=== PATIENT | male | born 1950 | race American Indian/Alaskan Native ===

== ENCOUNTER 2017-01-03 07:31 | Day surgery (SDC) | payer MEDICARE ==
[2016-12-21 09:57] VITALS: BMI 25.8
[2017-01-03] MEDS ORDERED: Iohexol 240 (50 ml) ONE (07:52)
[2017-01-03] MEDS ORDERED: cefTRIAXone IV 1 gm in Dextros 50 ML IVPB ONE (07:52)
[2017-01-03] MEDS ORDERED: Lidocaine 2% Jelly (Uro-Jet) ONE (07:52)
[2017-01-03] MEDS ORDERED: Iohexol 240 200 ML IJ ONE (09:38)
[2017-01-03] MEDS ORDERED: Lactated Ringer's 1,000 ML IV ONE (09:39)
[2017-01-03] MEDS ORDERED: Propofol 10 mg/ml Inj (20 ML) ONE (09:40)
--- NOTE | 2017-01-03 10:10 | PCM.SURG1 ---
Surgeon's Initial Post Op Note - Surgeon's Notes Surgeon: Reena COHN Baggage Porter: NONE Type of Anesthesia: General Mask Pre-Operative Diagnosis: VOIDING DYSFUNCTION. BPH Operative Findings: SAME Post-Operative Diagnosis: SAME Operation Performed: CMG, CGM. CYSTOSCOPY Specimen/Specimens Removed: URINE Estimated Blood Loss: EBL {In ML}: 0 Blood Products Given: N/A Drains Used: No Drains Post-Op Condition: Good Date of Surgery/Procedure: 01/03/17 Time of Surgery/Procedure: 10:10
[2017-01-03] MEDS ORDERED: HYDROmorphone 0.5 mg/0.5 ml ISec IVP PRN (10:39)
[2017-01-03 12:06] VITALS: BP 143/95; PULSE 59; RESP 20; TEMP 98; O2SAT 100
--- NOTE | 2017-01-04 11:48 | OP ---
PROCEDURE DATE: 01/03/2017 PREOPERATIVE DIAGNOSES: Lower urinary tract voiding symptoms, prostatic enlargement. POSTOPERATIVE DIAGNOSES: Lower urinary tract voiding symptoms, prostatic enlargement. PROCEDURE: Cystometrogram. Cystogram. Cystoscopy. DESCRIPTION OF PROCEDURE: The patient received perioperative antibiotics. The patient was placed in the supine position. Hicks catheter was inserted per urethra. The residual within the bladder was less than 100 mL. Urine was sent for bacteriologic examination and cytologic examination. The cystometrogram was performed. Carbon dioxide gas was instilled into the bladder at filling rate of 120 mL minute. The patient had a first urge to void at a volume of 110 mL. He had a stronger desire to void at 560 mL. The patient had felt uncomfortable and full at a volume of 200 mL. There was no detrusor instability. There was no detrusor contraction. The only pressure was w hen patient was asked to cough. The patient then had a cystogram performed. Iodinated contrast dye was instilled per urethra. Radio graphs were obtained in PA and oblique views. Cystogram demonstrated a normal bladder contour. There was no intrinsic or extrinsic filling defect within the bladder. There was no vesicoureteral reflux. The bladder contour was normal. There was mild elevation of the bladder base consistent with prostatic hypertrophy. The bladder was then drained. The patient was placed in lithotomy position. Genitalia prepped and d raped sterilely. Anesthesia was provided by the anesthesiologist. A 22-Malay cystoscope sheath was introduced under direct vision. Urethra, prostate and bladder were inspected with 30-degree and 70-degree lenses. FINDINGS: There was no stricture of the anterior urethra. There was evidence of predominant lateral lobe hypertrophy. The prostatic urethra was 5 cm in length. There was small middle lobe hypertroph y at the bladder neck. There was mild bladder trabeculation. There was no bladder tumor. There was no bladder stone. The ureteral orifices were normal in position and shape. There was no bladder diverticula. There were n o focal mucosal lesions within the bladder. The bladder was reinspected with 70-degree lens and confirmed the above findings. The cystoscope and sheath were removed. Rectal examination was performed. Prostate was supple and smooth, approximately 15 grams in size, wi thout fixation, induration, or nodularity. There was no abnormal pelvic mass fixation or induration. The patient tolerated the procedure without complication. Cromwell Sonal Saleh MD cc: [id number] TT: 01/04/2017 11:48:13 rn
--- NOTE | 2017-01-04 17:13 | RAD ---
PROCEDURE: HISTORY: URINARY FREQUENCY COMPARISON: None TECHNIQUE: As per physician performing the exam FINDINGS: Contrast within a moderately distended bladder is noted wrote contour appears normal no gross filling defects seen IMPRESSION: As above
== END 2017-01-03 12:03 | disposition home or self-care (01) ==
LOC: C.SDS 07:31
PROVIDERS: ATTEND Urology
DX: N40.1 Benign prostatic hyperplasia with lower urinary tract symptoms (principal); R39.14 Feeling of incomplete bladder emptying; N39.0 Urinary tract infection, site not specified
CPT/HCPCS: 52000; 74430; 87086; 88104; J0696; J7120; Q9966

== ENCOUNTER 2018-05-27 01:06 | Emergency (ER) | payer MEDICARE ==
[2018-05-27 01:07] VITALS: BMI 25.8
[2018-05-27 01:29] VITALS: RESP 20
[2018-05-27 02:27] LABS: SQUAMOUS EPITHIAL < 1 /hpf (0-5); URINE BILIRUBIN NEGATIVE (NEGATIVE); URINE BLOOD 2+ (NEGATIVE); URINE CLARITY Clear (Clear); URINE COLOR Straw (YELLOW); URINE GLUCOSE (UA) 2+ mg/dL (Normal); URINE LEUKOCYTE ESTERASE NEG Leu/uL (Negative); URINE PROTEIN NEGATIVE (NEGATIVE); URINE UROBILINOGEN NORMAL mg/dL (0.2-1.0)
[2018-05-27 03:01] VITALS: BP 171/88; PULSE 81; TEMP 97.8; O2SAT 98
--- NOTE | 2018-05-27 03:07 | C.PDOC ---
History Of Present Illness Patient c/o low abdominal pressure started from 11 am associated with inability to urinate. Patient sts he has h/o BPH and has scheduled surgery for 06/12/18 by . Chief Complaint (Nursing): Male Genitourinary History Per: Patient History/Exam Limitations: no limitations Onset/Duration Of Symptoms: Days (1) Current Symptoms Are (Timing): Still Present Severity: Moderate Quality Of Discomfort: Pressure Past Medical History Reviewed: Historical Data, Nursing Documentation, Vital Signs Vital Signs: Last Vital Signs Temp 97.8 F 05/27/18 03:00 Pulse 81 05/27/18 03:00 Resp 20 05/27/18 03:00 BP 171/88 H 05/27/18 03:00 Pulse Ox 98 05/27/18 03:00 - Medical History PMH: Anxiety, Arthritis, HTN, Kidney Stones, Chronic Kidney Disease Other PMH: BPH Family History: States: No Known Family Hx - Social History Hx Alcohol Use: Yes Hx Substance Use: No - Immunization History Hx Tetanus Toxoid Vaccination: No Hx Influenza Vaccination: No Hx Pneumococcal Vaccination: No Review Of Systems Except As Marked, All Systems Reviewed And Found Negative. Physical Exam - Physical Exam Appears: Non-toxic, No Acute Distress, Other (uncomfortable) Skin: Normal Color, Warm, No Rash Head: Atraumatic, Normacephalic Eye(s): bilateral: Normal Inspection Chest: Symmetrical Cardiovascular: Rhythm Regular Respiratory: Normal Breath Sounds, No Accessory Muscle Use Gastrointestinal/Abdominal: Tenderness (low abdomen), Distention (suprapubic area) Extremity: Normal ROM, No Pedal Edema Neurological/Psych: Oriented x3, Normal Cognition, Normal Motor, Normal Sensation ED Course And Treatment O2 Sat by Pulse Oximetry: 98 Progress Note: Hicks was inserted by RN, obtained 500 ml of clear urine that was sent for UA. Patient sts he feels much better. UA with few RBCs (probably traumatic from Hicks insertion). No signs of UTI. Patient is stable to be d/c home with leg bag with follow up. Disposition - Disposition Referrals: Carloz Saleh MD [Staff Provider] - Nasrin Saleh MD [Staff Provider] - Disposition: HOME/ ROUTINE Disposition Time: 03:05 Condition: IMPROVED Additional Instructions: Follow up with your Urologist within 2-3 days. Return to Ed if feel worse. Instructions: Urinary Retention (DC) Forms: [facility] ([place]) - Clinical Impression Clinical Impression: Urinary retention
== END 2018-05-27 03:19 | disposition home or self-care (01) ==
LOC: C.ER 01:06
DX: N40.1 Benign prostatic hyperplasia with lower urinary tract symptoms (principal); R33.8 Other retention of urine; I12.9 Hypertensive chronic kidney disease with stage 1 through stage 4 chronic kidney disease, or unspecified chronic kidney disease; N18.9 Chronic kidney disease, unspecified; Z87.442 Personal history of urinary calculi

== ENCOUNTER 2018-06-12 06:28 | Inpatient (IN) | payer MEDICARE ==
[2018-05-31 10:22] VITALS: BMI 21.7
[2018-06-12] MEDS ORDERED: Gentamicin 160 MG in Sodium Chloride 0.9% 100 ML IVPB ONE (06:36)
[2018-06-12] MEDS ORDERED: cefTRIAXone 1 gm 1 GM/100 ML BAG IVPB ONE (06:45)
[2018-06-12] MEDS ORDERED: Lidocaine 2% Jelly (Uro-Jet) ONE (06:46)
[2018-06-12] MEDS ORDERED: Propofol 10 mg/ml Inj (20 ML) ONE (07:48)
[2018-06-12] MEDS ORDERED: Midazolam 2 MG/2 ML VIAL ONE (07:48)
[2018-06-12 07:57] LABS: BLOOD UREA NITROGEN 18 mg/dL (9-20); CALCIUM 8.7 mg/dl (8.6-10.4); GFR NON-AFRICAN AMERICAN > 60
[2018-06-12] MEDS ORDERED: Phenylephrine 10 mg/ml Inj ONE (08:22)
[2018-06-12] MEDS ORDERED: Lidocaine Hydrochloride 5 ML INJ ONE (08:22)
--- NOTE | 2018-06-12 09:44 | PCM.SURG1 ---
Surgeon's Initial Post Op Note - Surgeon's Notes Surgeon: Reena Saleh Recovery Room Nurse: none Type of Anesthesia: General LMA Pre-Operative Diagnosis: BPH Operative Findings: same Post-Operative Diagnosis: same Operation Performed: cysto,. TURP Specimen/Specimens Removed: urine. prostate Estimated Blood Loss: EBL {In ML}: 100 Blood Products Given: N/A Post-Op Condition: Good Date of Surgery/Procedure: 06/12/18 Time of Surgery/Procedure: 09:30
[2018-06-12] MEDS: HYDROmorphone 0.5 mg/0.5 ml ISec IVP PRN ×3 (09:45→15:36)
[2018-06-12] MEDS ORDERED: Labetalol 5mg/ml (4ml) IV SCH (09:52)
[2018-06-12] MEDS ORDERED: Dextrose 5%/0.45% NS 1,000 ML IV ONE (13:00)
[2018-06-12] MEDS: Potassium Ch 20mEq in D5-1/2NS 1,000 ML IV SCH ×2 (15:15→22:37)
[2018-06-12] MEDS ORDERED: HYDROmorphone 0.5 mg/0.5 ml ISec ONE (15:40)
[2018-06-12] MEDS: Oxycodone/Acetaminophen 5/325 mg Tab PO PRN (18:00)
[2018-06-12] MEDS: (Novolog) Insulin Aspart, Recombinant 100 u/ml 10 ml vial SC SCH ×2 (18:55→21:59)
[2018-06-12] MEDS ORDERED: (Novolog) Insulin Aspart, Recombinant 100 u/ml 10 ml vial SC SCH ×2 (19:00→22:00)
--- NOTE | 2018-06-12 23:52 | CP.PCM.HP ---
Past Patient History - Infectious Disease Hx of Infectious Diseases: None - Past Medical History & Family History Past Medical History?: Yes - Past Social History Smoking Status: Light Smoker < 10 Cigarettes Daily - CARDIAC Hx Cardiac Disorders: Yes Hx Hypertension: Yes - PULMONARY Hx Respiratory Disorders: No - NEUROLOGICAL Hx Neurological Disorder: No - HEENT Hx HEENT Problems: No - RENAL Hx Chronic Kidney Disease: Yes Hx Kidney Stones: Yes - ENDOCRINE/METABOLIC Hx Endocrine Disorders: Yes Hx Diabetes Mellitus Type 2: Yes - HEMATOLOGICAL/ONCOLOGICAL Hx Blood Disorders: No - INTEGUMENTARY Hx Dermatological Problems: Yes (ITCHING/DERMATITIS LEFT ANKLE) - MUSCULOSKELETAL/RHEUMATOLOGICAL Hx Musculoskeletal Disorders: Yes (PAIN RT KNEE) Hx Arthritis: Yes - GASTROINTESTINAL Other/Comment: ABD DISTENDED BUT SOFT NO PAIN - GENITOURINARY/GYNECOLOGICAL Hx Genitourinary Disorders: Yes (RETENTION) Hx Prostate Problems: Yes Hx Urinary Tract Infection: Yes - PSYCHIATRIC Hx Psychophysiologic Disorder: Yes Hx Anxiety: Yes Hx Substance Use: No - SURGICAL HISTORY Hx Surgeries: No Other/Comment: CYSTO ? [facility] - ANESTHESIA Hx Anesthesia: Yes Hx Anesthesia Reactions: No Hx Malignant Hyperthermia: No Has any member of the family had a problem w/ anesthesia?: No Meds Allergies/Adverse Reactions: Allergies Allergy/AdvReac Type Severity Reaction Status Date / Time No Known Allergies Allergy Verified 05/27/18 01:29 Physical Exam - Constitutional Appears: Well - Head Exam Head Exam: ATRAUMATIC, NORMAL INSPECTION, NORMOCEPHALIC - Eye Exam Eye Exam: EOMI, Normal appearance, PERRL Pupil Exam: NORMAL ACCOMODATION, PERRL - ENT Exam ENT Exam: Mucous Membranes Moist, Normal Exam - Neck Exam Neck exam: Positive for: Normal Inspection - Respiratory Exam Respiratory Exam: Decreased Breath Sounds - Cardiovascular Exam Cardiovascular Exam: REGULAR RHYTHM, +S1, +S2 - GI/Abdominal Exam GI & Abdominal Exam: Diminished Bowel Sounds, Soft - Rectal Exam Rectal Exam: Deferred Results - Vital Signs Recent Vital Signs: Last Vital Signs Temp 98 F 06/12/18 21:00 Pulse 72 06/12/18 21:00 Resp 20 06/12/18 21:00 BP 169/89 H 06/12/18 21:00 Pulse Ox 98 06/12/18 21:00 - Labs Result Diagrams: 06/12/18 07:41 Labs: Laboratory Results - last 24 hr 1106/12/18 06/12/18 07:05 07:41 11:32 Sodium 138 Potassium 4.3 Chloride 104 Carbon Dioxide 25 Anion Gap 14 BUN 18 Creatinine 1.0 Est GFR ( Amer) > 60 Est GFR (Non-Af Amer) > 60 POC Glucose (mg/dL) 131 H 149 H Random Glucose 150 H Calcium 8.7 06/12/18 06/12/18 16:46 21:25 Sodium Potassium Chloride Carbon Dioxide Anion Gap BUN Creatinine Est GFR ( Amer) Est GFR (Non-Af Amer) POC Glucose (mg/dL) 303 H 165 H Random Glucose Calcium
[2018-06-13] MEDS: Oxycodone/Acetaminophen 5/325 mg Tab PO PRN ×5 (00:30→18:21)
[2018-06-13] MEDS: Potassium Ch 20mEq in D5-1/2NS 1,000 ML IV SCH (05:48)
[2018-06-13 06:53] LABS: HEMOGLOBIN 12.8 g/dL (12.0-18.0); MEAN CELL VOLUME 92.2 fL (80.0-94.0); MEAN CORPUSCULAR HEMOGLOBIN 31.8 pg (27.0-31.0); MEAN CORPUSCULAR HGB CONC 34.5 g/dL (33.0-37.0); MEAN PLATELET VOLUME 8.6 fL (7.2-11.7); RBC 4.02 Mil/uL (4.40-5.90); RED CELL DISTRIBUTION WIDTH 13.6 % (11.5-14.5); WHITE BLOOD COUNT 6.8 K/uL (4.8-10.8)
[2018-06-13 07:35] LABS: BLOOD UREA NITROGEN 13 mg/dL (9-20); GFR NON-AFRICAN AMERICAN > 60
[2018-06-13] MEDS: (Novolog) Insulin Aspart, Recombinant 100 u/ml 10 ml vial SC SCH ×4 (08:20→21:27)
--- NOTE | 2018-06-13 10:39 | PCM.URO ---
Urology Progress Note - General General: Tolerating Diet - Subjective Abdominal Pain: No Flank Pain: No Nausea: No Vomiting: No Hematuria: Yes (mild, clears promptly) Dsypnea: No Chest Pain: No Fever & Chills: No - Objective Lab Studies: Reviewed Lab Results Last 24 Hours: Laboratory Results - last 24 hr 06/12/18 06/12/18 06/12/18 11:32 16:46 21:25 WBC RBC Hgb Hct MCV MCH MCHC RDW Plt Count MPV Sodium Potassium Chloride Carbon Dioxide Anion Gap BUN Creatinine Est GFR ( Amer) Est GFR (Non-Af Amer) POC Glucose (mg/dL) 149 H 303 H 165 H Random Glucose Calcium 06/13/18 06/13/18 06/13/18 06:33 06:44 06:44 WBC 6.8 RBC 4.02 L Hgb 12.8 Hct 37.1 MCV 92.2 MCH 31.8 H MCHC 34.5 RDW 13.6 Plt Count 199 MPV 8.6 Sodium 136 Potassium 4.1 Chloride 103 Carbon Dioxide 25 Anion Gap 11 BUN 13 Creatinine 1.0 Est GFR ( Amer) > 60 Est GFR (Non-Af Amer) > 60 POC Glucose (mg/dL) 154 H Random Glucose 155 H Calcium 8.0 L Intake & Output: Intake & Output 06/12/18 06/13/18 06/13/18 18:59 06:59 18:59 Intake Total 1204 3450 Output Total 600 2200 Balance 604 1250 Intake: IV 1204 Intake, IV Amount 200 Left Antecubital 200 Oral 250 Other 3000 Output: Urine 600 2200 3-way Urethral 700 Other: Voiding Method 3-way Hicks with CBI Vital Signs: Vital Signs - 24 hr 06/12/18 06/12/18 06/12/18 10:45 11:15 11:45 Temperature Pulse Rate 66 64 62 Pulse Rate [ Radial] Respiratory 13 12 15 Rate Blood Pressure 140/88 139/84 O2 Sat by Pulse 100 100 100 Oximetry 06/12/18 06/12/18 06/12/18 12:30 13:00 14:00 Temperature Pulse Rate 60 62 62 Pulse Rate [ Radial] Respiratory 12 11 L 12 Rate Blood Pressure 147/84 O2 Sat by Pulse 100 100 100 Oximetry 06/12/18 06/12/18 06/12/18 15:00 15:36 16:00 Temperature Pulse Rate 62 60 60 Pulse Rate [ Radial] Respiratory 13 13 12 Rate Blood Pressure 131/79 149/83 O2 Sat by Pulse 100 100 100 Oximetry 06/12/18 06/12/18 06/12/18 18:00 18:30 19:00 Temperature Pulse Rate 60 65 63 Pulse Rate [ Radial] Respiratory 12 12 14 Rate Blood Pressure 161/85 H 169/98 H 138/83 O2 Sat by Pulse 100 100 100 Oximetry 06/12/18 06/12/18 06/12/18 20:15 21:00 23:35 Temperature 99 F 98 F 98 F Pulse Rate 69 72 74 Pulse Rate [ 72 Radial] Respiratory 14 20 20 Rate Blood Pressure 137/81 169/89 H 192/100 H O2 Sat by Pulse 100 98 95 Oximetry 06/13/18 06/13/18 06/13/18 03:30 04:30 07:00 Temperature 97.7 F 97.9 F Pulse Rate 76 64 87 Pulse Rate [ Radial] Respiratory 20 20 Rate Blood Pressure 175/89 H 146/81 197/101 H O2 Sat by Pulse 97 97 Oximetry - Physical Exam Abdominal Exam: Soft, Non-Tender, Non-Distended Back: No CVA Tenderness Genitalia: Without Inflammation Urinary Catheter Draining Well: Yes Urine Color: Grannis Extremities: Normal: Bilateral - Male Phallus: Normal Scrotum: Normal Testes: Normal: Bilateral - Plan Advance Diet: Yes Catheter Care: Yes Ambulation - Out of Bed: Yes Intake & Output: Yes See Orders: Yes Additional Information: IMP: progressing well, p TURP - Date & Time of Note Date: 06/13/18 Time: 08:10
--- NOTE | 2018-06-13 12:55 | CP.PCM.PN ---
Subjective - Date & Time of Evaluation Date of Evaluation: 06/13/18 Time of Evaluation: 10:00 - Subjective Subjective: clinically same Objective - Vital Signs/Intake and Output Vital Signs (last 24 hours): Temp Pulse Resp BP Pulse Ox 97.9 F 87 20 197/101 H 97 06/13/18 07:00 06/13/18 07:00 06/13/18 07:00 06/13/18 07:00 06/13/18 07:00 Intake and Output: 06/13/18 06/13/18 06:59 18:59 Intake Total 3450 Output Total 2200 Balance 1250 - Medications Medications: Current Medications Docusate Sodium (Colace) 100 mg PO TID [facility] Last Admin: 06/13/18 09:51 Dose: 100 mg Ceftriaxone Sodium 1 gm/ (Sodium Chloride) 100 mls @ 100 mls/hr IVPB DAILY [facility]; Protocol Last Admin: 06/13/18 09:58 Dose: 100 mls/hr Influenza Virus Vaccine (Fluzone Quad [id number]) 60 mcg IM .ONCE ONE Stop: 06/14/18 10:01 Insulin Aspart (Novolog) 0 unit SC ACHS [facility]; Protocol Last Admin: 06/13/18 12:09 Dose: 2 unit Labetalol HCl (Trandate) 5 mg IV Q15MIN [facility] Stop: 06/16/18 09:53 Losartan Potassium (Cozaar) 100 mg PO DAILY [facility] Last Admin: 06/13/18 09:51 Dose: 100 mg Oxycodone/Acetaminophen (Percocet 5/325 Mg Tab) 1 tab PO Q4H PRN PRN Reason: Pain, moderate (4-7) Stop: 06/15/18 10:59 Last Admin: 06/13/18 07:57 Dose: 1 tab Pneumococcal Polyvalent Vaccine (Pneumovax 23 Vaccine) 0.5 ml IM .ONCE ONE Stop: 06/14/18 10:01 Tamsulosin HCl (Flomax) 0.4 mg PO BID [facility] Last Admin: 06/13/18 09:51 Dose: 0.4 mg - Labs Labs: 06/13/18 06:44 06/13/18 06:44 - Constitutional Appears: Well - Head Exam Head Exam: ATRAUMATIC, NORMAL INSPECTION, NORMOCEPHALIC - Eye Exam Eye Exam: EOMI, Normal appearance, PERRL Pupil Exam: NORMAL ACCOMODATION, PERRL - ENT Exam ENT Exam: Mucous Membranes Moist, Normal Exam - Neck Exam Neck Exam: Full ROM, Normal Inspection. absent: Lymphadenopathy - Respiratory Exam Respiratory Exam: Decreased Breath Sounds - Cardiovascular Exam Cardiovascular Exam: REGULAR RHYTHM, +S1, +S2 - GI/Abdominal Exam GI & Abdominal Exam: Soft, Diminished Bowel Sounds - Rectal Exam Rectal Exam: Deferred
--- NOTE | 2018-06-13 18:33 | OP ---
PROCEDURE DATE: 06/12/2018 PREOPERATIVE DIAGNOSES: 1. Benign prostatic hypertrophy. 2. Bladder outlet obstruction. 3. Enlarged prostate. POSTOPERATIVE DIAGNOSES: 1. Benign prostatic hypertrophy. 2. Bladder outlet obstruction. 3. Enlarged prostate. PROCEDURES: 1. Cystoscopy. 2. Transurethral resection of the prostate. OPERATING SURGEON: Nasrin Saleh MD DESCRIPTION OF PROCEDURE: As follows: The patient was placed in lithotomy position. The patient received general anesthesia. The genitalia were prepped and draped sterilely. Perioperative antibiotics were administered. A 26-Hungarian continuous flow resectoscope sheath was introduced under direct vision. Procedure was performed under video endoscopic control. The urethra, prostate, and bladder were inspected with 30-degree lens. FINDINGS: There was no stricture in the anterior urethra. There was evidence of trilobar prostatic hypertrophy. There was predominant lateral lobe hypertrophy. Prostatic urethra length was 4.5 cm. There was a small intravesical middle lobe as well. There was moderate bladder trabeculation. The ureteral orifices were at first not seen due to middle lobe hypertrophy. Subsequent inspection identified the ureteral orifices bilaterally. The resectoscope was inserted. Resection of the prostate was performed as follows. The middle lobe at the bladder neck was resected. The ureteral orifices were identified and spared throughout the procedure. Hemostasis was achieved after each section of resection. Thereafter, the anterior roof tissue was resected. The landmarks of the veru were identified and preserved throughout the resection. Subsequently, the lateral lobes were resected, first on the right, then on the left side. Finally, the floor and apical prostatic tissue were resected with the surgeon's index finger within the O'Fidel drape in the rectum. The prostatic chips were removed using the [employer] evacuator. The resectoscope was inserted. Hemostasis was achieved. There were no residual prostatic chips. The resectoscope and sheath were removed. Hicks catheter was inserted. Bladder drainage was clear with mild traction applied. The patient was returned to supine position. The patient tolerated the procedure without complication. The patient was transferred to recovery room in satisfactory condition. Nasrin Saleh MD cc: Bi Cleaning MD
[2018-06-14] MEDS: Oxycodone/Acetaminophen 5/325 mg Tab PO PRN ×2 (02:37→18:21)
[2018-06-14] MEDS: (Novolog) Insulin Aspart, Recombinant 100 u/ml 10 ml vial SC SCH ×4 (07:30→21:22)
[2018-06-14] MEDS: Multivitamin With Minerals Tab PO SCH (09:34)
[2018-06-14] MEDS ORDERED: Pneumococcal 23-Valent Vaccine IM ONE (10:00)
[2018-06-14] MEDS ORDERED: Influenza Vaccine 60 MCG/0.5 ML SYR (3 yr & up) IM ONE (10:00)
[2018-06-14 16:35] VITALS: RESP 20
--- NOTE | 2018-06-14 22:05 | CP.PCM.PN ---
Subjective - Date & Time of Evaluation Date of Evaluation: 06/14/18 Time of Evaluation: 09:10 - Subjective Subjective: clinically same Objective - Vital Signs/Intake and Output Vital Signs (last 24 hours): Temp Pulse Resp BP Pulse Ox 98.6 F 80 20 130/74 97 06/14/18 15:34 06/14/18 15:34 06/14/18 15:34 06/14/18 15:34 06/14/18 15:34 Intake and Output: 06/14/18 06/15/18 18:59 06:59 Intake Total 550 Output Total 1000 Balance -450 - Medications Medications: Current Medications Ciprofloxacin (Cipro) 500 mg PO BID [facility]; Protocol Last Admin: 06/14/18 21:58 Dose: 500 mg Docusate Sodium (Colace) 100 mg PO TID [facility] Last Admin: 06/14/18 17:00 Dose: 100 mg Insulin Aspart (Novolog) 0 unit SC ACHS [facility]; Protocol Last Admin: 06/14/18 21:22 Dose: Not Given Labetalol HCl (Trandate) 5 mg IV Q15MIN [facility] Stop: 06/16/18 09:53 Losartan Potassium (Cozaar) 100 mg PO DAILY [facility] Last Admin: 06/14/18 09:34 Dose: 100 mg Multivitamins/Minerals (Therapeutic-M Tab) 1 tab PO 0800 [facility] Last Admin: 06/14/18 09:34 Dose: 1 tab Oxycodone/Acetaminophen (Percocet 5/325 Mg Tab) 1 tab PO Q4H PRN PRN Reason: Pain, moderate (4-7) Stop: 06/15/18 10:59 Last Admin: 06/14/18 18:21 Dose: 1 tab Tamsulosin HCl (Flomax) 0.4 mg PO BID [facility] Last Admin: 06/14/18 17:00 Dose: 0.4 mg - Labs Labs: 06/13/18 06:44 06/13/18 06:44 - Constitutional Appears: Well - Head Exam Head Exam: ATRAUMATIC, NORMAL INSPECTION, NORMOCEPHALIC - Eye Exam Eye Exam: EOMI, Normal appearance, PERRL Pupil Exam: NORMAL ACCOMODATION, PERRL - ENT Exam ENT Exam: Mucous Membranes Moist, Normal Exam - Neck Exam Neck Exam: Full ROM, Normal Inspection. absent: Lymphadenopathy - Respiratory Exam Respiratory Exam: Decreased Breath Sounds - Cardiovascular Exam Cardiovascular Exam: REGULAR RHYTHM, +S1, +S2 - GI/Abdominal Exam GI & Abdominal Exam: Soft, Diminished Bowel Sounds - Rectal Exam Rectal Exam: Deferred
[2018-06-15] MEDS: Oxycodone/Acetaminophen 5/325 mg Tab PO PRN ×2 (05:33)
[2018-06-15] MEDS: (Novolog) Insulin Aspart, Recombinant 100 u/ml 10 ml vial SC SCH ×2 (07:44→12:21)
[2018-06-15 08:44] VITALS: TEMP 97.8; O2SAT 98
[2018-06-15] MEDS: Multivitamin With Minerals Tab PO SCH (09:00)
[2018-06-15 09:39] VITALS: BP 132/82; PULSE 77
--- NOTE | 2018-06-15 11:34 | CP.PCM.PN ---
Subjective - Date & Time of Evaluation Date of Evaluation: 06/15/18 Time of Evaluation: 08:00 - Subjective Subjective: Medicine progress note: Dr. Ronnie Kerr's service Patient was seen and examined at bedside in the AM. Patient states he has slig ht burning when the urine is being released but otherwise is feeling well. Patient denies chest pain, shortness of breath, nausea, vomiting, diarrhea, constipation, hematuria, abdominal pain or headache. Objective - Vital Signs/Intake and Output Vital Signs (last 24 hours): Temp Pulse Resp BP Pulse Ox 97.8 F 77 20 132/82 98 06/15/18 07:07 06/15/18 09:30 06/15/18 07:07 06/15/18 09:30 06/15/18 07:07 Intake and Output: 06/15/18 06/15/18 06:59 18:59 Intake Total 500 Output Total 1100 Balance -600 - Medications Medications: Current Medications Ciprofloxacin (Cipro) 500 mg PO BID [facility]; Protocol Last Admin: 06/15/18 09:33 Dose: 500 mg Docusate Sodium (Colace) 100 mg PO TID [facility] Last Admin: 06/15/18 09:32 Dose: 100 mg Insulin Aspart (Novolog) 0 unit SC [facility]; Protocol Last Admin: 06/15/18 07:44 Dose: Not Given Labetalol HCl (Trandate) 5 mg IV Q15MIN [facility] Stop: 06/16/18 09:53 Losartan Potassium (Cozaar) 100 mg PO DAILY [facility] Last Admin: 06/15/18 09:33 Dose: 100 mg Multivitamins/Minerals (Therapeutic-M Tab) 1 tab PO 0800 [facility] Last Admin: 06/15/18 09:00 Dose: 1 tab Tamsulosin HCl (Flomax) 0.4 mg PO BID [facility] Last Admin: 06/15/18 09:32 Dose: 0.4 mg - Labs Labs: 06/13/18 06:44 06/13/18 06:44 - Constitutional Appears: No Acute Distress - Head Exam Head Exam: ATRAUMATIC, NORMAL INSPECTION - Eye Exam Eye Exam: EOMI, Normal appearance - ENT Exam ENT Exam: Mucous Membranes Moist - Respiratory Exam Respiratory Exam: Clear to Ausculation Bilateral, NORMAL BREATHING PATTERN - Cardiovascular Exam Cardiovascular Exam: REGULAR RHYTHM, +S1, +S2 - GI/Abdominal Exam GI & Abdominal Exam: Soft, Normal Bowel Sounds. absent: Tenderness - Exam Additional comments: hernandez in place - urine - clear/yellow in color - Extremities Exam Extremities Exam: Normal Inspection - Neurological Exam Neurological Exam: Alert, Awake, Oriented x3 - Psychiatric Exam Psychiatric exam: Normal Affect - Skin Skin Exam: Normal Color Assessment and Plan - Assessment and Plan (Free Text) Assessment: BPH/Bladder Outlet Obstruction - Uro Consult: Dr. Nasrin Saleh --> help appreciated - s/p cystoscopy and transurethral resection of the prostate - Discussed with Dr. Saleh - stated the burning is normal. Patient to be discharged with Percocet as needed for pain and Levaquin for 10 days. Discussed with patient that he will go home with the hernandez and is to follow up with Dr. Saleh in the office on TuesdayJune 20 to have the hernandez removed. Patient stated he understood. Case discussed with Dr. Kevin Kerr
== END 2018-06-15 12:52 | disposition home or self-care (01) | DRG 713 ==
LOC: C.SDS 06:28 → C.9S 09:41 → C.6T 20:43
PROVIDERS: ADMIT Internal Medicine Nephrology; ATTEND Internal Medicine Nephrology
PROC: 0VT08ZZ Resection of Prostate, Via Natural or Artificial Opening Endoscopic (ICD-10-PCS; principal; 2018-06-12 07:45)
PROC: 0TJB8ZZ Inspection of Bladder, Via Natural or Artificial Opening Endoscopic (ICD-10-PCS; 2018-06-12 07:45)
DX: N40.1 Benign prostatic hyperplasia with lower urinary tract symptoms (principal); N13.8 Other obstructive and reflux uropathy; N18.9 Chronic kidney disease, unspecified; I12.9 Hypertensive chronic kidney disease with stage 1 through stage 4 chronic kidney disease, or unspecified chronic kidney disease; E11.22 Type 2 diabetes mellitus with diabetic chronic kidney disease; F17.210 Nicotine dependence, cigarettes, uncomplicated; Z79.4 Long term (current) use of insulin

== ENCOUNTER 2018-08-17 11:49 | Inpatient (IN) | payer MEDICARE ==
[2018-08-17 11:49] VITALS: BMI 21.7
[2018-08-17] MEDS ORDERED: Sodium Chloride 0.9% 1,000 ML IV ONE ×2 (12:09→13:08)
--- NOTE | 2018-08-17 12:16 | C.PDOC ---
History Of Present Illness 68yo male with history of diabetes, hypertension, non-compliant with medications, comes to ER after he was at an outpatient office and his labs indicated elevated blood sugar. Patient reports polyuria, polydypsia as well. No fever, chills or complaints of pain. Time Seen by Provider: 08/17/18 12:04 Chief Complaint (Nursing): High Blood Sugar History Per: Patient History/Exam Limitations: no limitations Past Medical History Reviewed: Historical Data, Nursing Documentation, Vital Signs Vital Signs: Last Vital Signs Temp 98.2 F 08/17/18 11:55 Pulse 100 H 08/17/18 11:55 Resp 20 08/17/18 11:55 BP 182/123 H 08/17/18 11:55 Pulse Ox 100 08/17/18 11:55 - Medical History PMH: Anxiety, Arthritis, HTN, Kidney Stones, Chronic Kidney Disease Surgical History: No Surg Hx - [facility] Procedures INSPECTION OF BLADDER, ENDO (06/12/18) RESECTION OF PROSTATE, ENDO (06/12/18) Family History: States: Unknown Family Hx - Social History Hx Alcohol Use: No Hx Substance Use: No - Immunization History Hx Tetanus Toxoid Vaccination: No Hx Influenza Vaccination: No Hx Pneumococcal Vaccination: No Review Of Systems Except As Marked, All Systems Reviewed And Found Negative. Constitutional: Positive for: Other (polydypsia). Negative for: Fever, Chills Cardiovascular: Negative for: Chest Pain Gastrointestinal: Negative for: Vomiting, Abdominal Pain Genitourinary: Positive for: Other (polyuria) Physical Exam - Physical Exam Appears: Non-toxic, No Acute Distress Skin: Normal Color Head: Normacephalic Eye(s): bilateral: Normal Inspection Neck: Normal ROM, Supple Chest: Symmetrical Cardiovascular: Rhythm Regular Respiratory: Normal Breath Sounds Gastrointestinal/Abdominal: Normal Exam, Soft, No Tenderness Back: Normal Inspection, No CVA Tenderness Extremity: Normal ROM, No Pedal Edema Neurological/Psych: Oriented x3 ED Course And Treatment - Laboratory Results Result Diagrams: 08/17/18 12:33 08/17/18 12:33 ECG: Interpreted By Me, Viewed By Me ECG Rhythm: Sinus Rhythm ECG Interpretation: Normal Rate From EC O2 Sat by Pulse Oximetry: 100 (RA) Pulse Ox Interpretation: Normal Medical Decision Making Medical Decision Makinyo male wit increased blood sugar; hx of HTN, DM Plan: -- Labs -- EKG -- VBG -- Urinalysis -- IV Fluids ro dka- labs no eo of dka. normal ph. noted ketones, suspect dehydration. bicarb normal. ivf insulin initated. seen by dr cyr bedside accepts for obs for hyperglycemia dehydration. Disposition - Disposition Disposition: HOSPITALIZED Disposition Time: 14:34 Condition: STABLE - Clinical Impression Clinical Impression: Hyperglycemia, Dehydration - Scribe Statement The provider has reviewed the documentation as recorded by the Fatemeh Brown Provider Attestation: All medical record entries made by the Adielibzeferino were at my direction and personally dictated by me. I have reviewed the chart and agree that the record accurately reflects my personal performance of the history, physical exam, medical decision making, and the department course for this patient. I have also personally directed, reviewed, and agree with the discharge instructions and disposition. Decision To Admit - Pt Status Changed To: Hospital Disposition Of: Observation - . Bed Request Type: Regular Admitting Physician: Tatianna Cyr Patient Diagnosis: Hyperglycemia, Dehydration
[2018-08-17 12:42] LABS: VENOUS BLOOD GAS BASE EXCESS -3.1 mmol/L (0.0-2.0); VENOUS BLOOD GAS PCO2 39 mmHg (40-60); VENOUS BLOOD GAS PO2 45 mm/Hg (30-55); VENOUS BLOOD PH 7.36 (7.32-7.43)
[2018-08-17 12:43] LABS: BASO % 0.4 % (0.0-2.0); EOS # 0.1 K/uL (0.0-0.7); EOS % 1.7 % (0.0-4.0); LYMPH # 1.1 K/uL (1.0-4.3); LYMPH % 23.7 % (20.0-40.0); MEAN CELL VOLUME 93.2 fL (80.0-94.0); MEAN CORPUSCULAR HEMOGLOBIN 31.6 pg (27.0-31.0); MEAN CORPUSCULAR HGB CONC 33.9 g/dL (33.0-37.0); MEAN PLATELET VOLUME 10.1 fL (7.2-11.7); MONO # 0.2 K/uL (0.0-0.8); MONO % 4.6 % (0.0-10.0); NEUT # 3.1 K/uL (1.8-7.0); NEUT % 69.6 % (50.0-75.0); RBC 4.77 Mil/uL (4.40-5.90); WHITE BLOOD COUNT 4.4 K/uL (4.8-10.8)
[2018-08-17 12:45] LABS: HEMOGLOBIN 15.1 g/dL (12.0-18.0)
[2018-08-17 12:52] LABS: INR 1.2
[2018-08-17 13:04] LABS: SQUAMOUS EPITHIAL 1 /hpf (0-5); URINE BACTERIA RARE (<OCC); URINE BILIRUBIN NEGATIVE (NEGATIVE); URINE BLOOD 1+ (NEGATIVE); URINE CLARITY Clear (Clear); URINE COLOR Straw (YELLOW); URINE GLUCOSE (UA) 3+ mg/dL (Normal); URINE PROTEIN NEGATIVE (NEGATIVE); URINE UROBILINOGEN NORMAL mg/dL (0.2-1.0)
[2018-08-17 13:07] LABS: URINE LEUKOCYTE ESTERASE TRACE Leu/uL (Negative)
[2018-08-17 13:08] LABS: ALB/GLOB RATIO 1.1 (1.0-2.1); ALBUMIN 4.1 g/dL (3.5-5.0); ALT/SGPT 23 U/L (21-72); AST/SGOT 22 U/L (17-59); BLOOD UREA NITROGEN 16 mg/dL (9-20); CALCIUM 9.2 mg/dl (8.6-10.4); GFR NON-AFRICAN AMERICAN > 60
[2018-08-17] MEDS ORDERED: (Novolin R) Insulin Human Regular 100 units/ml vial IVP STA (13:08)
[2018-08-17] MEDS ORDERED: Sodium Chloride 0.9% 2,000 ML ONE (13:23)
[2018-08-17] MEDS ORDERED: (Novolin R) Insulin Human Regular 100 units/ml vial ONE ×2 (13:24→18:39)
[2018-08-17] MEDS ORDERED: (Novolin R) Insulin Human Regular 100 units/ml vial SC SCH ×2 (17:30)
[2018-08-17] MEDS: Sodium Chloride 0.9% 1,000 ML IV SCH (17:35)
[2018-08-17] MEDS: (Novolin R) Insulin Human Regular 100 units/ml vial SC SCH (22:26)
[2018-08-17 22:59] VITALS: RESP 20
[2018-08-18] MEDS: Sodium Chloride 0.9% 1,000 ML IV SCH ×4 (03:30→22:35)
[2018-08-18] MEDS: (Novolin R) Insulin Human Regular 100 units/ml vial SC SCH ×5 (08:09→22:00)
[2018-08-18] MEDS: Enoxaparin 40 mg Syringe SC SCH (09:18)
[2018-08-18] MEDS: Pantoprazole 40 mg EC Tab PO SCH (09:19)
--- NOTE | 2018-08-18 19:15 | CARD ---
APPROVED REPORT Date of service: 08/17/2018 EKG Measurement Heart [id number] <Conclusion> Normal sinus rhythm Left axis deviation Minimal voltage criteria for LVH, may be normal variant Abnormal ECG
--- NOTE | 2018-08-18 19:18 | CP.PCM.HP ---
Past Patient History - Infectious Disease Hx of Infectious Diseases: None - Past Medical History & Family History Past Medical History?: Yes - Past Social History Smoking Status: Light Smoker < 10 Cigarettes Daily - CARDIAC Hx Hypertension: Yes - PULMONARY Hx Respiratory Disorders: No - NEUROLOGICAL Hx Neurological Disorder: No - HEENT Hx HEENT Problems: No - RENAL Hx Chronic Kidney Disease: Yes Hx Kidney Stones: Yes - ENDOCRINE/METABOLIC Hx Endocrine Disorders: Yes Hx Diabetes Mellitus Type 2: Yes - HEMATOLOGICAL/ONCOLOGICAL Hx Blood Disorders: No - INTEGUMENTARY Hx Dermatological Problems: Yes (ITCHING/DERMATITIS LEFT ANKLE) - MUSCULOSKELETAL/RHEUMATOLOGICAL Hx Arthritis: Yes - GASTROINTESTINAL Other/Comment: ABD DISTENDED BUT SOFT NO PAIN - GENITOURINARY/GYNECOLOGICAL Hx Genitourinary Disorders: Yes (RETENTION FERRER TO SGD) - PSYCHIATRIC Hx Anxiety: Yes Hx Substance Use: No - SURGICAL HISTORY Hx Surgeries: Yes Other/Comment: Prostate surgery - ANESTHESIA Hx Anesthesia: Yes Hx Anesthesia Reactions: No Hx Malignant Hyperthermia: No Meds Allergies/Adverse Reactions: Allergies Allergy/AdvReac Type Severity Reaction Status Date / Time No Known Allergies Allergy Verified 08/17/18 11:58 Physical Exam - Constitutional Appears: Well - Head Exam Head Exam: ATRAUMATIC, NORMAL INSPECTION, NORMOCEPHALIC - Eye Exam Eye Exam: EOMI, Normal appearance, PERRL Pupil Exam: NORMAL ACCOMODATION, PERRL - ENT Exam ENT Exam: Mucous Membranes Moist, Normal Exam - Neck Exam Neck exam: Positive for: Normal Inspection - Respiratory Exam Respiratory Exam: Decreased Breath Sounds - Cardiovascular Exam Cardiovascular Exam: REGULAR RHYTHM, +S1, +S2 - GI/Abdominal Exam GI & Abdominal Exam: Diminished Bowel Sounds, Soft - Rectal Exam Rectal Exam: Deferred Results - Vital Signs Recent Vital Signs: Last Vital Signs Temp 97.8 F 08/18/18 16:00 Pulse 79 08/18/18 16:00 Resp 20 08/18/18 16:00 BP 126/80 08/18/18 16:00 Pulse Ox 96 08/18/18 16:17 - Labs Result Diagrams: 08/17/18 12:33 08/17/18 12:33 Labs: Laboratory Results - last 24 hr 08/17/18 08/18/18 08/18/18 22:18 02:18 07:23 POC Glucose (mg/dL) 299 H 191 H 273 H 08/18/18 08/18/18 11:26 16:43 POC Glucose (mg/dL) 466 H* 249 H
[2018-08-19 06:42] LABS: BASO % 0.5 % (0.0-2.0); EOS # 0.2 K/uL (0.0-0.7); EOS % 3.8 % (0.0-4.0); HEMOGLOBIN 12.8 g/dL (12.0-18.0); LYMPH # 2.1 K/uL (1.0-4.3); LYMPH % 53.3 % (20.0-40.0); MEAN CELL VOLUME 92.9 fL (80.0-94.0); MEAN CORPUSCULAR HEMOGLOBIN 31.6 pg (27.0-31.0); MEAN PLATELET VOLUME 9.7 fL (7.2-11.7); MONO # 0.2 K/uL (0.0-0.8); MONO % 6.1 % (0.0-10.0); NEUT # 1.4 K/uL (1.8-7.0); NEUT % 36.3 % (50.0-75.0); NRBC % 0.1 % (0.0-2.0); RBC 4.05 Mil/uL (4.40-5.90); RED CELL DISTRIBUTION WIDTH 13.1 % (11.5-14.5)
[2018-08-19] MEDS: Sodium Chloride 0.9% 1,000 ML IV SCH ×4 (06:58→20:00)
[2018-08-19 07:02] LABS: ALBUMIN 2.9 g/dL (3.5-5.0); ALT/SGPT 19 U/L (21-72); AST/SGOT 17 U/L (17-59); BLOOD UREA NITROGEN 10 mg/dL (9-20); CALCIUM 8.1 mg/dl (8.6-10.4); GFR NON-AFRICAN AMERICAN > 60
[2018-08-19] MEDS: (Novolin R) Insulin Human Regular 100 units/ml vial SC SCH ×4 (07:43→21:46)
[2018-08-19] MEDS: Pantoprazole 40 mg EC Tab PO SCH (09:44)
[2018-08-19] MEDS: Enoxaparin 40 mg Syringe SC SCH (09:44)
--- NOTE | 2018-08-19 13:45 | CP.PCM.PN ---
Subjective - Date & Time of Evaluation Date of Evaluation: 08/19/18 Time of Evaluation: 08:00 - Subjective Subjective: clinically same Objective - Vital Signs/Intake and Output Vital Signs (last 24 hours): Temp Pulse Resp BP Pulse Ox 97.8 F 69 20 137/85 95 08/19/18 07:46 08/19/18 07:46 08/19/18 07:46 08/19/18 07:46 08/19/18 07:46 Intake and Output: 08/19/18 08/19/18 06:59 18:59 Intake Total 2100 Balance 2100 - Medications Medications: Current Medications Amlodipine Besylate (Norvasc) 10 mg PO DAILY [facility] Last Admin: 08/19/18 09:44 Dose: 10 mg Enoxaparin Sodium (Lovenox) 40 mg SC DAILY [facility] Last Admin: 08/19/18 09:44 Dose: 40 mg Sodium Chloride (Sodium Chloride 0.9%) 1,000 mls @ 100 mls/hr IV .Q10H [facility] Last Admin: 08/19/18 09:01 Dose: Not Given Influenza Virus Vaccine (Flucelvax Quad 6712-5512 Syr) 60 mcg IM .ONCE ONE Stop: 08/20/18 10:01 Insulin Human Regular (Novolin R) 0 unit SC [facility]; Protocol Last Admin: 08/19/18 11:49 Dose: 8 units Losartan Potassium (Cozaar) 100 mg PO DAILY [facility] Last Admin: 08/19/18 09:44 Dose: 100 mg Metformin HCl (Glucophage) 500 mg PO BID [facility] Last Admin: 08/19/18 09:44 Dose: 500 mg Pantoprazole Sodium (Protonix Ec Tab) 40 mg PO DAILY [facility] Last Admin: 08/19/18 09:44 Dose: 40 mg Pneumococcal Polyvalent Vaccine (Pneumovax 23 Vaccine) 0.5 ml IM .ONCE ONE Stop: 08/20/18 10:01 - Labs Labs: 08/19/18 06:36 08/19/18 06:36 PT 13.0 SECONDS (9.7-12.2) H 08/17/18 12:33 INR 1.2 08/17/18 12:33 APTT 29 SECONDS (21-34) 08/17/18 12:33 - Constitutional Appears: Well - Head Exam Head Exam: ATRAUMATIC, NORMAL INSPECTION, NORMOCEPHALIC - Eye Exam Eye Exam: EOMI, Normal appearance, PERRL Pupil Exam: NORMAL ACCOMODATION, PERRL - ENT Exam ENT Exam: Mucous Membranes Moist, Normal Exam - Neck Exam Neck Exam: Full ROM, Normal Inspection. absent: Lymphadenopathy - Respiratory Exam Respiratory Exam: Decreased Breath Sounds - Cardiovascular Exam Cardiovascular Exam: REGULAR RHYTHM, +S1, +S2 - GI/Abdominal Exam GI & Abdominal Exam: Soft, Diminished Bowel Sounds - Rectal Exam Rectal Exam: Deferred
[2018-08-20] MEDS: Sodium Chloride 0.9% 1,000 ML IV SCH ×2 (04:43→15:59)
[2018-08-20] MEDS: (Novolin R) Insulin Human Regular 100 units/ml vial SC SCH ×4 (08:12→21:58)
[2018-08-20] MEDS: Enoxaparin 40 mg Syringe SC SCH (09:13)
[2018-08-20] MEDS: Pantoprazole 40 mg EC Tab PO SCH (09:13)
[2018-08-20] MEDS ORDERED: Pneumococcal 23-Valent Vaccine IM ONE (10:00)
[2018-08-20] MEDS ORDERED: Influenza Vaccine 60 mcg/0.5 mL SYR (4YR UP) IM ONE (10:00)
--- NOTE | 2018-08-20 16:58 | CP.PCM.PN ---
Subjective - Date & Time of Evaluation Date of Evaluation: 08/20/18 Time of Evaluation: 08:00 - Subjective Subjective: clinically same Objective - Vital Signs/Intake and Output Vital Signs (last 24 hours): Temp Pulse Resp BP Pulse Ox 98.5 F 105 H 20 141/83 96 08/20/18 15:00 08/20/18 15:00 08/20/18 15:00 08/20/18 15:00 08/20/18 15:00 Intake and Output: 08/20/18 08/20/18 06:59 18:59 Intake Total 1150 Balance 1150 - Medications Medications: Current Medications Amlodipine Besylate (Norvasc) 10 mg PO DAILY [facility] Last Admin: 08/20/18 09:13 Dose: 10 mg Enoxaparin Sodium (Lovenox) 40 mg SC DAILY [facility] Last Admin: 08/20/18 09:13 Dose: 40 mg Sodium Chloride (Sodium Chloride 0.9%) 1,000 mls @ 100 mls/hr IV .Q10H [facility] Last Admin: 08/20/18 15:59 Dose: Not Given Insulin Human Regular (Novolin R) 0 unit SC [facility]; Protocol Last Admin: 08/20/18 12:15 Dose: 6 units Losartan Potassium (Cozaar) 100 mg PO DAILY [facility] Last Admin: 08/20/18 09:13 Dose: 100 mg Metformin HCl (Glucophage) 500 mg PO BID [facility] Last Admin: 08/20/18 09:13 Dose: 500 mg Pantoprazole Sodium (Protonix Ec Tab) 40 mg PO DAILY [facility] Last Admin: 08/20/18 09:13 Dose: 40 mg - Labs Labs: 08/19/18 06:36 08/19/18 06:36 PT 13.0 SECONDS (9.7-12.2) H 08/17/18 12:33 INR 1.2 08/17/18 12:33 APTT 29 SECONDS (21-34) 08/17/18 12:33 - Constitutional Appears: Well - Head Exam Head Exam: ATRAUMATIC, NORMAL INSPECTION, NORMOCEPHALIC - Eye Exam Eye Exam: EOMI, Normal appearance, PERRL Pupil Exam: NORMAL ACCOMODATION, PERRL - ENT Exam ENT Exam: Mucous Membranes Moist, Normal Exam - Neck Exam Neck Exam: Full ROM, Normal Inspection. absent: Lymphadenopathy - Respiratory Exam Respiratory Exam: Decreased Breath Sounds - Cardiovascular Exam Cardiovascular Exam: REGULAR RHYTHM, +S1, +S2 - GI/Abdominal Exam GI & Abdominal Exam: Soft, Diminished Bowel Sounds - Rectal Exam Rectal Exam: Deferred
[2018-08-21] MEDS: (Novolin R) Insulin Human Regular 100 units/ml vial SC SCH (08:38)
[2018-08-21 09:29] VITALS: BP 153/95; PULSE 76; TEMP 98.1; O2SAT 95
--- NOTE | 2018-08-21 09:33 | CP.PCM.PN ---
Subjective - Date & Time of Evaluation Date of Evaluation: 08/21/18 Time of Evaluation: 09:09 - Subjective Subjective: Progress Note for Dr. Kerr 68 year old male with history of hypertension, BPH s/p TURP and diabetes was sent to the ED by his PMD for elevated blood surgar. At the time of admission patient's random blood glucose was 562 without ion gap. He complains of frequent urination and feeling thirsty weeks before coming to the hospital. Patient reports to be compliant with home metformin, but does not check his blood glucose. Patient seen and examined at bedside this morning. No acute events overnight. Patient is resting in bed comfortably. Currently he denies fever, chills, dizziness, headache, shortness of breath, chest pain, nausea, vomiting or urinary symptoms. PMD: Dr. Jameson PMHx: HTN, DM PSHx: TURP 05/2018 Allergy: NKDA Social Hx: Current smoker (3-4 cigarettes daily x 30 years), social alcohol consumption, denies other drug use Meds: Metformin, Losartan Objective - Vital Signs/Intake and Output Vital Signs (last 24 hours): Temp Pulse Resp BP Pulse Ox 97.8 F 75 20 159/80 H 95 08/21/18 00:00 08/21/18 00:00 08/21/18 00:00 08/21/18 00:00 08/21/18 00:00 Intake and Output: 08/21/18 08/21/18 06:59 18:59 Intake Total 500 Balance 500 - Medications Medications: Current Medications Amlodipine Besylate (Norvasc) 10 mg PO DAILY [facility] Last Admin: 08/20/18 09:13 Dose: 10 mg Enoxaparin Sodium (Lovenox) 40 mg SC DAILY [facility] Last Admin: 08/20/18 09:13 Dose: 40 mg Insulin Human Regular (Novolin R) 0 unit SC [facility]; Protocol Last Admin: 08/21/18 08:38 Dose: 4 units Losartan Potassium (Cozaar) 100 mg PO DAILY [facility] Last Admin: 08/20/18 09:13 Dose: 100 mg Metformin HCl (Glucophage) 500 mg PO BID [facility] Last Admin: 08/20/18 17:43 Dose: 500 mg Pantoprazole Sodium (Protonix Ec Tab) 40 mg PO DAILY [facility] Last Admin: 02/03/19 09:13 Dose: 40 mg - Labs Labs: 08/19/18 06:36 08/19/18 06:36 PT 13.0 SECONDS (9.7-12.2) H 08/17/18 12:33 INR 1.2 08/17/18 12:33 APTT 29 SECONDS (21-34) 08/17/18 12:33 - Constitutional Appears: Well, Non-toxic, No Acute Distress - Head Exam Head Exam: ATRAUMATIC, NORMAL INSPECTION, NORMOCEPHALIC - Eye Exam Eye Exam: EOMI, Normal appearance, PERRL Pupil Exam: NORMAL ACCOMODATION, PERRL - ENT Exam ENT Exam: Mucous Membranes Moist, Normal Exam - Neck Exam Neck Exam: Full ROM, Normal Inspection - Respiratory Exam Respiratory Exam: Clear to Ausculation Bilateral, NORMAL BREATHING PATTERN. absent: Wheezes, Respiratory Distress - Cardiovascular Exam Cardiovascular Exam: REGULAR RHYTHM, +S1, +S2. absent: Murmur - GI/Abdominal Exam GI & Abdominal Exam: Soft (but distended), Normal Bowel Sounds - Extremities Exam Extremities Exam: Full ROM, Normal Capillary Refill, Normal Inspection. absent: Joint Swelling, Pedal Edema - Back Exam Back Exam: NORMAL INSPECTION - Neurological Exam Neurological Exam: Alert, Awake, Oriented x3 - Psychiatric Exam Psychiatric exam: Normal Affect, Normal Mood - Skin Skin Exam: Dry, Normal Color, Warm Assessment and Plan - Assessment and Plan (Free Text) Assessment: Hyperglycemia -secondary to uncontrolled diabetes -blood glucose in the 200s since hospital admission -B Hydroxybutyrate 1.68 -No ion gap -Follow up A1C -ISS -FS ACHS -CCD -Metformin 1000mg bid Hypertension -Losartan 100mg daily -Amlodipine 10mg daily Tobacco Abuse -smoking cessation was strongly advised -Refused nicotine patch Prophylactic measures -Lovenox -Protonix Patient is medically stable to be discharged home Case discussed with attending Dr. Kerr
[2018-08-21] MEDS ORDERED: (Novolin R) Insulin Human Regular 100 units/ml vial SC SCH (09:36)
[2018-08-21] MEDS: Pantoprazole 40 mg EC Tab PO SCH (10:34)
[2018-08-21] MEDS: Enoxaparin 40 mg Syringe SC SCH (10:35)
[2018-08-21 11:48] LABS: ALB/GLOB RATIO 1.1 (1.0-2.1); ALBUMIN 3.3 g/dL (3.5-5.0); ALT/SGPT 53 U/L (21-72); AST/SGOT 70 U/L (17-59); BLOOD UREA NITROGEN 14 mg/dL (9-20); CALCIUM 8.6 mg/dl (8.6-10.4); GFR NON-AFRICAN AMERICAN > 60
== END 2018-08-21 14:59 | disposition home or self-care (01) | DRG 639 ==
LOC: C.ER 11:49 → C.9E 13:29 → C.3T 22:32 → OBSVTOIN 08-19 16:57 → C.3T 08-21 06:16
PROVIDERS: ADMIT Internal Medicine Nephrology; ATTEND Internal Medicine Nephrology
DX: E11.65 Type 2 diabetes mellitus with hyperglycemia (principal); E86.0 Dehydration; F17.200 Nicotine dependence, unspecified, uncomplicated; I12.9 Hypertensive chronic kidney disease with stage 1 through stage 4 chronic kidney disease, or unspecified chronic kidney disease; N18.9 Chronic kidney disease, unspecified; E11.22 Type 2 diabetes mellitus with diabetic chronic kidney disease; Z79.84 Long term (current) use of oral hypoglycemic drugs; Z87.442 Personal history of urinary calculi; Z91.14 Patient's other noncompliance with medication regimen; F41.9 Anxiety disorder, unspecified; L30.9 Dermatitis, unspecified; R35.0 Frequency of micturition